=== PATIENT | male | born 1995 | race Caucasian/White ===

== ENCOUNTER 2016-06-19 18:44 | Emergency (ER) | payer BC ==
[~2016-06-19] VITALS: Ht 182.9 cm; Wt 80.0 kg
[2016-06-19 18:49] VITALS: TEMP 36.2; Ht 182.9 cm; Wt 80.0 kg
[2016-06-19] MEDS ORDERED: IBUPROFEN 600 MG TAB PO STA (18:58)
--- NOTE | 2016-06-19 19:17 | EMERGENCY ROOM VISIT NOTE ---
History Report prepared by [place]: Jaylen Skinner Under the Supervision of: Dr. Tim Donovan M.D. First contact with patient: 18:51 Chief Complaint: ELBOW PAIN/INJURY Stated Complaint: ELBOW INJURY History of Present Illness The patient is a 20 year old male who presents to the Emergency Room with complaints of constant right upper arm pain beginning shortly prior to arrival. He states that he tripped and landed on his arm around the mid-bicep area. He states that he has full range of motion of his elbow. The patient admits to drinking some alcohol tonight. He denies any back pain. He did not hit his head or lose consciousness. His pain is worsened with bending his right arm and making a fist. Source of History: patient Onset: Shortly prior to arrival Position: arm (right upper) Timing: constant Modifying Factors (Worsening): other (bending right arm and making a fist.) Associated Symptoms: No LOC, No back pain Review of Systems See HPI for pertinent positives & negatives. A total of 10 systems reviewed and were otherwise negative. Past Medical & Surgical Medical Problems: (1) No Known Active Medical Problems Family History No pertinent family history stated. Social History Occupation Status: [employer] student Current/Historical Medications No Active Prescriptions or Reported Meds Allergies Coded Allergies: No Known Allergies (Unverified , 06/19/16) Physical Exam Vital Signs Date Time Temp Pulse Resp B/P Pulse Ox O2 Delivery O2 Flow Rate FiO2 06/19/16 20:18 108 18 140/87 99 Room Air 06/19/16 18:49 36.2 90 18 163/103 99 Room Air Physical Exam GENERAL: Patient is in no acute distress. HEENT: No acute trauma, normocephalic atraumatic, mucous membranes moist, no nasal congestion, no scleral icterus. No scalp hematoma. NECK: No stridor, no adenopathy, no meningismus, trachea is midline. No posterior cervical spine step off or tenderness LUNGS: Clear to auscultation bilaterally, no wheeze, no rhonchi, breath sounds equal. HEART: Without murmurs gallops or rubs, regular rate and rhythm. ABDOMEN: Soft, nontender, bowel sounds positive, no hernias, no peritonitis. EXTREMITIES: No lower extremity trauma by exam. Right upper extremity does not show evidence for right shoulder dislocation. Right clavicle is nontender. No obvious dislocation to the right elbow. No evidence for neurovascular compromise in the right upper extremity. Tender to palpation of the distal right tricep/humerus posteriorly. Pain worsens with elbow flexion. No pain with supination. NEUROLOGIC: Mildly intoxicated. Awake, alert and oriented x3. No acute focal motor deficits. SKIN: No rash, no jaundice, no diaphoresis. Medical Decision & Procedures ER Provider Diagnostic Interpretation: X-ray results as stated below per interpretation by me and the radiologist. RIGHT HUMERUS 2 VIEWS FINDINGS: AP and lateral portable views of the right humerus are obtained. No prior studies are available for comparison at the time of dictation. The skeletal structures are well mineralized. No humeral fracture is seen. The elbow and shoulder joints are grossly preserved. The overlying soft tissues are within normal limits. Partially imaged right lung parenchyma appears clear. IMPRESSION: There is no radiographic evidence of right humeral fracture. Electronically signed by: Tim Banuelos M.D. RIGHT ELBOW 3 VIEWS FINDINGS: 3 views of the right elbow are obtained. No prior studies are available for comparison at the time of dictation. The skeletal structures are well mineralized. No fracture is seen. The joint spaces of the elbow are well-maintained. There is no joint effusion. Mild dorsal soft tissue swelling is noted. IMPRESSION: There is no radiographic evidence of right elbow fracture Electronically signed by: Tim Banuelos M.D. Medications Administered Medications (Trade) Dose Ordered Sig/Celena Route Start Time Stop Time Status Last Admin Dose Admin Ibuprofen (Motrin Tab) 600 mg NOW STAT PO 06/19/16 18:58 06/19/16 18:59 DC 06/19/16 19:06 600 MG ED Course 185: The patient was evaluated in room A7. A complete history and physical exam was performed. 1857: Ordered Motrin Tab 600 mg PO. 2019: Reevaluated the patient. Discussed results and discharge instructions: he verbalized understanding and agreement. The patient is ready for discharge. Medical Decision The patient is a 20 year old male who presents to the ED with complaints of right arm pain. Differential diagnoses considered include humerus/elbow fracture, muscle strain, right elbow/triceps contusion, head/neck/chest/ abdominal trauma, as well as other etiologies were considered. The patient presents after falling onto his right elbow. He has some posterior distal humerus pain and some right elbow pain. On exam, there was no evidence for neurovascular compromise. No evidence for right elbow dislocation. He had not struck his head, there was no neck pain, chest pain, back pain or abdominal pain. He did seem very mildly intoxicated with alcohol. Films of the right elbow and right humerus were done, no fractures were seen. Patient has contused the posterior elbow and distal posterior humerus. He is being discharged with an ice pack, oral Motrin. He was given a dose of Motrin prior to discharge. The patient was told to avoid alcohol in excess and to return for worsening symptoms. Impression Primary Impression: Right arm pain Additional Impression: Fall Scribe Attestation The scribe's documentation has been prepared under my direction and personally reviewed by me in its entirety. I confirm that the note above accurately reflects all work, treatment, procedures, and medical decision making performed by me. Departure Information Dispostion Home / Self-Care Prescriptions No Active Prescriptions or Reported Meds Forms HOME CARE DOCUMENTATION FORM, IMPORTANT VISIT INFORMATION Patient Instructions My [facility] Additional Instructions avoid alcohol in excess ice to the sore area should help motrin 600 mg 3x per day for a few days return if worsening no fracture today by xray Problem Qualifiers
--- NOTE | 2016-06-19 20:05 | DIAGNOSTIC IMAGING REPORT ---
RIGHT ELBOW 3 VIEWS CLINICAL HISTORY: Fall with right arm pain. FINDINGS: 3 views of the right elbow are obtained. No prior studies are available for comparison at the time of dictation. The skeletal structures are well mineralized. No fracture is seen. The joint spaces of the elbow are well-maintained. There is no joint effusion. Mild dorsal soft tissue swelling is noted. IMPRESSION: There is no radiographic evidence of right elbow fracture Electronically signed by: Tim Banuelos M.D. 06/19/2016 8:04 PM Dictated Date/Time: 06/19/2016 8:03 PM
[2016-06-19 20:18] VITALS: BP 140/87; PULSE 108; O2SAT 99
--- NOTE | 2016-06-19 20:18 | DIAGNOSTIC IMAGING REPORT ---
RIGHT HUMERUS 2 VIEWS CLINICAL HISTORY: Fall with right arm pain. FINDINGS: AP and lateral portable views of the right humerus are obtained. No prior studies are available for comparison at the time of dictation. The skeletal structures are well mineralized. No humeral fracture is seen. The elbow and shoulder joints are grossly preserved. The overlying soft tissues are within normal limits. Partially imaged right lung parenchyma appears clear. IMPRESSION: There is no radiographic evidence of right humeral fracture. Electronically signed by: Tim Banuelos M.D. 06/19/2016 8:16 PM Dictated Date/Time: 06/19/2016 8:15 PM
== END 2016-06-19 20:31 | disposition home or self-care (01) ==
LOC: C.EDA 18:46
DX: M79.601 Pain in right arm (principal); W18.09XA Striking against other object with subsequent fall, initial encounter